=== PATIENT | male | born 2005 | race Caucasian/White ===

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

== ENCOUNTER → 2024-11-29 | Outpatient (CLI) | payer OTHER, SELFPAY ==
--- NOTE | 2024-11-29 14:44 | RAD_ITS ---
PROCEDURE: ANKLE MIN 3 VIEWS 11/29/2024 REASON FOR EXAM: ANKLE INJURY TECHNIQUE: 3 views of the right ankle COMPARISON: None FINDINGS: Bones: No fracture or dislocation. Joints: Normal alignment. Mortise appears intact. No effusion. Soft tissues: Lateral soft tissue swelling. Other: RAD/Ankle min 3 Views IMPRESSION: Lateral soft tissue swelling. Reading Location: [place] [id number]
== END | disposition home or self-care (01) ==
LOC: MTRAD 14:44
PROVIDERS: PCP Pediatrics; Referring Provider Physician Assistant; Visit Provider Physician Assistant
DX: S99.919A Unspecified injury of unspecified ankle, initial encounter (principal); X58.XXXA Exposure to other specified factors, initial encounter
CPT/HCPCS: 73610